=== PATIENT | female | born 1975 | race Caucasian/White ===

== ENCOUNTER 2018-05-28 15:56 | Emergency (ER) | payer OTHER ==
[~2018-05-28] VITALS: Ht 142.2 cm; Wt 54.4 kg
[2018-05-28 16:07] VITALS: Ht 142.2 cm; Wt 54.4 kg
[2018-05-28 18:28] VITALS: BP 126/77
== END 2018-05-28 18:40 | disposition home or self-care (01) ==
LOC: ED 15:56
DX: B34.9 Viral infection, unspecified (principal); E78.00 Pure hypercholesterolemia, unspecified
CPT/HCPCS: J1885; J7613; J7644

== ENCOUNTER 2020-01-14 02:32 | Emergency (ER) | payer OTHER ==
[~2020-01-14] VITALS: Ht 152.4 cm; Wt 56.7 kg
[2020-01-14 02:41] VITALS: Ht 152.4 cm; Wt 56.7 kg
[2020-01-14 04:21] VITALS: BP 144/86
== END 2020-01-14 04:21 | disposition home or self-care (01) ==
LOC: ED 02:32
DX: N39.0 Urinary tract infection, site not specified (principal); E78.00 Pure hypercholesterolemia, unspecified

== ENCOUNTER 2020-03-15 10:45 | Emergency (ER) | payer OTHER ==
[~2020-03-15] VITALS: Ht 154.9 cm; Wt 55.3 kg
[2020-03-15 10:54] VITALS: Ht 154.9 cm; Wt 55.3 kg
[2020-03-15 12:14] LABS: CALCIUM 9.6 mg/dL (8.5-10.1); CARBON DIOXIDE 23.5 mmol/L (21-32); CHLORIDE SERUM 104 mmol/L (98-107); CREATININE SERUM 0.6 mg/dL (0.6-1.0); GFR1 > 60 mL/min; GLUCOSE SERUM 103 mg/dL (74-106); POTASSIUM SERUM 3.6 mmol/L (3.5-5.1); SODIUM SERUM 138 mmol/L (136-145)
[2020-03-15 12:19] LABS: ALBUMIN 3.7 g/dL (3.4-5.0); ALKALINE PHOSPHATASE 76 U/L (46-116); ALT/SGPT 27 U/L (14-59); AST/SGOT 19 U/L (15-37); BILIRUBIN TOTAL 0.6 mg/dL (0.20-1.00); TOTAL PROTEIN, SERUM 7.3 g/dL (6.4-8.2)
[2020-03-15 12:21] LABS: BASOPHIL % 0.3 % (0-2); PLATELET COUNT 327 x10^3mcL (130-400); RED CELL DISTRIBUTION WIDTH 12.2 % (11.5-14.5)
[2020-03-15 13:41] VITALS: BP 121/81
== END 2020-03-15 13:41 | disposition home or self-care (01) ==
LOC: ED 10:45
PROVIDERS: Emergency Medicine
DX: R00.2 Palpitations (principal); R42 Dizziness and giddiness; E78.00 Pure hypercholesterolemia, unspecified